=== PATIENT | female | born 1955 | race Two or more races ===

== ENCOUNTER → 2024-06-08 | Outpatient (CLI) | payer MEDICARE, MEDICAID, SELFPAY ==
--- NOTE | 2024-06-08 14:15 | XR_ITS ---
Examination: Screening digital mammography, bilateral Computer aided detection 3-D breast Tomosynthesis, bilateral Date and time of exam: June 08, 2024 1412 hours Compared to mammograms dating to October 14, 2016 Indication: Screening Technique: Nonmagnified MLO, CC views of the breasts to been obtained, reconstructed from 3-D Tomosynthesis images. R2 computer aided detection program utilized for evaluation of suspicious masses and/or abnormal calcifications. 3-D Tomosynthesis images obtained. Findings: Scattered areas of fibroglandular density Benign calcifications. No interval suspicious masses Impression: BI-RADS category II: Benign Findings. Recommend 1 year follow-up mammogram.
--- NOTE | 2024-06-08 14:30 | XR_ITS ---
Examination: Bone densitometry Date and time of exam:June 08, 2024 1431 hours INDICATIONS: Hysterectomy age 30, family history mother sisters with osteoporosis Technique: Lumbar spine and hip total bone mineralization values of an calculated. Peak reference and age match control results have been displayed. Findings: Lumbar spine total bone mineralization is0.915 gm/cm2. This is 1.2 standard deviations below peak reference. This is 0.8 standard deviations above age-matched controls. Hip total bone mineralization is 0.700 gm/cm2 This is 2.0 standard deviations below peak reference. This is 0.6 standard deviations below age-matched controls Impression: There is osteopenia based on lumbar spine measurements. There is osteoporosis based on hip measurements Lumbar mineralization is increased 6.8% compared with August 19, 2021 Hip mineralization is decreased 2.1% compared with August 19, 2021
== END | disposition home or self-care (01) ==
LOC: CDIM 14:06
PROVIDERS: Referring Provider Nurse Practitioner Family; Visit Provider Nurse Practitioner Family
DX: Z12.31 Encounter for screening mammogram for malignant neoplasm of breast (principal); R92.323 Mammographic fibroglandular density, bilateral breasts; R92.1 Mammographic calcification found on diagnostic imaging of breast; M85.88 Other specified disorders of bone density and structure, other site; M81.0 Age-related osteoporosis without current pathological fracture
CPT/HCPCS: 77063; 77067; 77080

== ENCOUNTER → 2024-12-15 | Outpatient (CLI) | payer MEDICARE, MEDICAID, SELFPAY ==
--- NOTE | 2024-12-15 | XR_ITS ---
EXAMINATION: Ankle, left 3 views . Technique: Ankle AP, oblique, lateral 3 views Date and time of exam: December 15, 2024 1121 hours INDICATIONS: Patient fell 2 weeks ago with injury to the ankle, ankle pain. FINDINGS: Moderate osteopenia. Tiny chip fracture off the fibular tip age-indeterminate No ankle dislocation IMPRESSION: Tiny chip fracture off the fibular tip, age indeterminate
== END | disposition home or self-care (01) ==
DX: S82.492A Other fracture of shaft of left fibula, initial encounter for closed fracture (principal); W19.XXXA Unspecified fall, initial encounter
CPT/HCPCS: 73610

== ENCOUNTER → 2025-04-13 | Outpatient (CLI) | payer MEDICARE, MEDICAID, SELFPAY ==
--- NOTE | 2025-04-13 11:18 | XR_ITS ---
Examination: Lumbar spine 3 views Technique one AP lateral coned lateral lower lumbar spine 3 views Date and time: April 13, 2025, 11:37 AM, comparison January 16, 2019 INDICATIONS: Low back pain one month. FINDINGS: 3 mm left renal calculus Moderate osteopenia. No lumbar fracture No spondylolisthesis Mild to moderate disc narrowing L5-S1 IMPRESSION: Mild to moderate disc narrowing L5-S1 3 mm left renal calculus
== END | disposition home or self-care (01) ==
LOC: CDIM 11:04
PROVIDERS: PCP Internal Medicine; Referring Provider Internal Medicine; Visit Provider Internal Medicine
DX: M48.07 Spinal stenosis, lumbosacral region (principal); N20.0 Calculus of kidney; G89.29 Other chronic pain
CPT/HCPCS: 72100